=== PATIENT | male | born 1935 | race African-American/Black ===

== ENCOUNTER 2019-07-10 02:38 | Inpatient (IN) | payer MEDICARE, OTHER ==
[~2019-07-10] VITALS: Ht 188 cm; Wt 90.9 kg
[2019-07-10] MEDS ORDERED: QUET25TA34 PO (02:51)
[2019-07-10] MEDS ORDERED: CHLO25TA3 PO (02:51)
[2019-07-10] MEDS ORDERED: CLOP75TA32 PO (02:51)
[2019-07-10] MEDS ORDERED: DONE10TA43 PO (02:51)
[2019-07-10] MEDS ORDERED: TAMS-13 PO (02:51)
[2019-07-10] MEDS ORDERED: LISI-622 PO (02:51)
[2019-07-10 02:53] LABS: GLUCOSE,POINT OF CARE 123 MG/DL (70-110)
[2019-07-10 03:42] LABS: BASOPHILS % (AUTO) 0.1 % (0.0-2.0); EOSINOPHILS % (AUTO) 0 % (1.0-6.0); HEMATOCRIT 39.6 % (41-53); LYMPHOCYTES # (AUTO) 0.2 K/uL (1.0-4.8); LYMPHOCYTES % (AUTO) 1.5 % (22.0-44.0); MEAN CORPUSCULAR HEMOGLOBIN 30.1 pg (26.0-34.0); MEAN CORPUSCULAR HGB CONC 32.9 G/dL (31.0-37.0); MEAN CORPUSCULAR VOLUME 92 fL (80-100); MONOCYTES # (AUTO) 0.8 K/uL (0.1-1.0); MONOCYTES % (AUTO) 5.7 % (2.0-9.0); NEUTROPHILS # (AUTO) 13.6 K/uL (1.8-7.7); RED BLOOD CELL COUNT(AUTO) 4.32 MIL/uL (4.50-5.90)
[2019-07-10 03:51] LABS: ANION GAP 11 mmol/L (8-16); CALCIUM, TOTAL 9.7 mg/dL (8.8-10.5); CARBON DIOXIDE 26 mmol/L (22-29); CHLORIDE 101 mmol/L (98-107); GLOMERULAR FILTR. RATE CALC 37 mL/min (>60); GLUCOSE,RANDOM 118 mg/dL (70-110); POTASSIUM 4.1 mmol/L (3.5-5.1); SODIUM SERUM 138 mmol/L (136-145); UREA NITROGEN, BLOOD 34 mg/dL (7-18)
[2019-07-10 03:55] LABS: NEUTROPHILS % (AUTO) 92.7 % (40.0-70.0)
[2019-07-10 03:58] LABS: PLATELET COUNT (AUTO) 110 K/uL (150-450)
[2019-07-10 04:00] LABS: LACTIC ACID 2.5 mmol/L (0.4-2.0)
[2019-07-10 04:16] LABS: ALANINE AMINOTRANSFERASE 29 U/L (12-78); ALBUMIN 3.8 g/dL (3.4-5.0); ALKALINE PHOSPHATASE 67 U/L (46-116); ASPARTATE AMINOTRANSFERASE 29 U/L (15-37); BILIRUBIN,TOTAL 0.3 mg/dL (0.1-1.0); CREATINE KINASE, TOTAL ONLY 113 U/L (39-308); TOTAL PROTEIN, SERUM 8.1 g/dL (6.4-8.2)
[2019-07-10] MEDS ORDERED: SODIUM CHLORIDE 0.9% 1,000 ML IV ONE (05:00)
[2019-07-10] MEDS ORDERED: ONDANSETRON HCL 4 MG/2 ML VIAL IVP PRN ×2 (05:30)
[2019-07-10] MEDS ORDERED: ACETAMINOPHEN 325 MG TABLET PO PRN (05:30)
[2019-07-10] MEDS ORDERED: 0.9% SODIUM CHLORIDE 10 ML SYRINGE IVP PRN (05:30)
[2019-07-10] MEDS: CefTRIAXone 1 GM/DEXTROSE 50 ML IV SCH (06:00)
[2019-07-10] MEDS: SODIUM CHLORIDE 0.9% 1,000 ML IV SCH (06:42)
[2019-07-10 08:32] LABS: PROTHROMBIN TIME 10.1 SEC (9.4-11.6)
[2019-07-10] MEDS ORDERED: LISINOPRIL 5 MG TABLET PO SCH (09:00)
[2019-07-10] MEDS: CLOPIDOGREL BISULFATE 75 MG TABLET PO SCH (09:49)
[2019-07-10] MEDS: DOCUSATE SODIUM 100 MG CAPSULE PO SCH ×2 (09:49→21:00)
[2019-07-10] MEDS: FAMOTIDINE 10 MG/ML 2 ML VIAL IVP SCH (09:50)
[2019-07-10] MEDS: TAMSULOSIN HCL 0.4 MG CAPSULE PO SCH (09:51)
[2019-07-10 11:26] LABS: APPEARANCE,URINE CLEAR (CLEAR); BILIRUBIN,URINE NEGATIVE (NEGATIVE); GLUCOSE, URINE (UA) NEGATIVE (NEGATIVE); KETONES,URINE NEGATIVE (NEGATIVE); LEUKOCYTE ESTERASE ,URINE NEGATIVE (NEGATIVE); NITRATE,URINE NEGATIVE (NEGATIVE); OCCULT BLOOD,URINE NEGATIVE (NEGATIVE); PROTEIN,URINE NEGATIVE (NEGATIVE); UROBILINOGEN,URINE 0.2 mg/dL (<=1.0)
[2019-07-10 11:31] LABS: RBC,URINE None Seen /HPF (0-2); WBC,URINE None Seen /HPF (0-5)
[2019-07-10 11:32] LABS: BACTERIA,URINE None Seen /HPF (None Seen)
[2019-07-10 12:06] LABS: AMPHET/METH SCREEN,URINE NEGATIVE (NEGATIVE); BARBITURATE SCREEN, URINE NEGATIVE (NEGATIVE); BENZODIAZEPINES SCREEN,URINE NEGATIVE (NEGATIVE); CANNABINOID SCREEN,URINE NEGATIVE (NEGATIVE); COCAINE SCREEN,URINE NEGATIVE (NEGATIVE); METHADONE SCREEN, URINE NEGATIVE (NEGATIVE); OPIATE SCREEN,URINE NEGATIVE (NEGATIVE)
[2019-07-10 12:11] LABS: PHENCYCLIDINE SCREEN,URINE NEGATIVE (NEGATIVE)
[2019-07-10] MEDS: LORazepam 2 MG/ML VIAL IVP PRN ×2 (13:32→22:49)
[2019-07-10] MEDS: HALOPERIDOL LACTATE 5 MG/ML VIAL IM PRN ×2 (15:19→15:22)
[2019-07-11] MEDS: HALOPERIDOL LACTATE 5 MG/ML VIAL IM PRN (04:40)
[2019-07-11 05:00] VITALS: BP 149/94
[2019-07-11] MEDS: CefTRIAXone 1 GM/DEXTROSE 50 ML IV SCH (05:56)
[2019-07-11] MEDS: SODIUM CHLORIDE 0.9% 1,000 ML IV SCH ×2 (05:57→18:46)
[2019-07-11 07:34] VITALS: BP 146/88
[2019-07-11] MEDS: FAMOTIDINE 10 MG/ML 2 ML VIAL IVP SCH (08:29)
[2019-07-11] MEDS: TAMSULOSIN HCL 0.4 MG CAPSULE PO SCH (08:29)
[2019-07-11] MEDS: CLOPIDOGREL BISULFATE 75 MG TABLET PO SCH (08:31)
[2019-07-11] MEDS: DOCUSATE SODIUM 100 MG CAPSULE PO SCH ×2 (09:19→21:00)
[2019-07-11 09:26] LABS: BASOPHILS % (AUTO) 0.5 % (0.0-2.0); EOSINOPHILS % (AUTO) 1.5 % (1.0-6.0); HEMATOCRIT 36.6 % (41-53); HEMOGLOBIN 12.1 g/dL (13.5-17.5); LYMPHOCYTES # (AUTO) 0.8 K/uL (1.0-4.8); LYMPHOCYTES % (AUTO) 9.5 % (22.0-44.0); MEAN CORPUSCULAR HEMOGLOBIN 30.3 pg (26.0-34.0); MEAN CORPUSCULAR HGB CONC 33.1 G/dL (31.0-37.0); MEAN CORPUSCULAR VOLUME 92 fL (80-100); MONOCYTES # (AUTO) 1.3 K/uL (0.1-1.0); MONOCYTES % (AUTO) 15.4 % (2.0-9.0); NEUTROPHILS # (AUTO) 6.4 K/uL (1.8-7.7); NEUTROPHILS % (AUTO) 73.1 % (40.0-70.0); PLATELET COUNT (AUTO) 80 K/uL (150-450); RED CELL DISTRIBUTION WIDTH 14.1 % (11.5-14.5)
[2019-07-11 09:34] LABS: ANION GAP 10 mmol/L (8-16); CALCIUM, TOTAL 8.9 mg/dL (8.8-10.5); CARBON DIOXIDE 26 mmol/L (22-29); CHLORIDE 104 mmol/L (98-107); CREATININE 1.34 mg/dL (0.60-1.30); GLUCOSE,RANDOM 89 mg/dL (70-110); SODIUM SERUM 140 mmol/L (136-145); UREA NITROGEN, BLOOD 28 mg/dL (7-18)
[2019-07-11 09:35] LABS: GLOMERULAR FILTR. RATE CALC > 60 mL/min (>60)
[2019-07-11 11:21] VITALS: BP 152/87
[2019-07-11 15:07] VITALS: BP 148/84
[2019-07-11 19:30] VITALS: BP 141/82
[2019-07-11 23:30] VITALS: BP 146/84
[2019-07-12 04:00] VITALS: BP 140/82
[2019-07-12] MEDS: TAMSULOSIN HCL 0.4 MG CAPSULE PO SCH (07:49)
[2019-07-12] MEDS: CLOPIDOGREL BISULFATE 75 MG TABLET PO SCH (07:49)
[2019-07-12] MEDS: DOCUSATE SODIUM 100 MG CAPSULE PO SCH ×2 (07:49→23:58)
[2019-07-12] MEDS: LORazepam 2 MG/ML VIAL IVP PRN (07:49)
[2019-07-12] MEDS: SODIUM CHLORIDE 0.9% 1,000 ML IV SCH (07:50)
[2019-07-12 08:00] VITALS: BP 143/112
[2019-07-12] MEDS: FAMOTIDINE 10 MG/ML 2 ML VIAL IVP SCH (10:40)
[2019-07-12 12:05] VITALS: BP 185/79
[2019-07-12] MEDS ORDERED: CloNIDine HCL 0.1 MG TABLET PO PRN (16:00)
[2019-07-12] MEDS: AmLODIPine BESYLATE 5 MG TABLET PO SCH (16:07)
[2019-07-12 16:09] VITALS: BP 183/89
[2019-07-12 17:00] VITALS: BP 156/80
[2019-07-12 19:33] VITALS: BP 137/84
[2019-07-13 00:07] VITALS: BP 144/89
[2019-07-13] MEDS: SODIUM CHLORIDE 0.9% 1,000 ML IV SCH (01:37)
[2019-07-13 04:48] VITALS: BP 147/87
[2019-07-13] MEDS: CLOPIDOGREL BISULFATE 75 MG TABLET PO SCH (08:08)
[2019-07-13] MEDS: TAMSULOSIN HCL 0.4 MG CAPSULE PO SCH (08:08)
[2019-07-13] MEDS: AmLODIPine BESYLATE 5 MG TABLET PO SCH (08:08)
[2019-07-13] MEDS: DOCUSATE SODIUM 100 MG CAPSULE PO SCH (08:09)
[2019-07-13] MEDS: FAMOTIDINE 10 MG/ML 2 ML VIAL IVP SCH (08:09)
[2019-07-13 08:20] VITALS: BP 160/89
[2019-07-13 08:41] LABS: BASOPHILS % (AUTO) 0.3 % (0.0-2.0); EOSINOPHILS % (AUTO) 8.2 % (1.0-6.0); HEMATOCRIT 38.4 % (41-53); LYMPHOCYTES # (AUTO) 0.6 K/uL (1.0-4.8); LYMPHOCYTES % (AUTO) 14.1 % (22.0-44.0); MEAN CORPUSCULAR HEMOGLOBIN 30.5 pg (26.0-34.0); MEAN CORPUSCULAR HGB CONC 33.8 G/dL (31.0-37.0); MEAN CORPUSCULAR VOLUME 90 fL (80-100); MONOCYTES # (AUTO) 0.9 K/uL (0.1-1.0); MONOCYTES % (AUTO) 21.6 % (2.0-9.0); NEUTROPHILS # (AUTO) 2.4 K/uL (1.8-7.7); NEUTROPHILS % (AUTO) 55.8 % (40.0-70.0); PLATELET COUNT (AUTO) 83 K/uL (150-450); RED BLOOD CELL COUNT(AUTO) 4.25 MIL/uL (4.50-5.90); RED CELL DISTRIBUTION WIDTH 13.5 % (11.5-14.5)
[2019-07-13 08:54] LABS: ANION GAP 8 mmol/L (8-16); CALCIUM, TOTAL 9.3 mg/dL (8.8-10.5); CARBON DIOXIDE 28 mmol/L (22-29); CHLORIDE 103 mmol/L (98-107); CREATININE 1.27 mg/dL (0.60-1.30); GLOMERULAR FILTR. RATE CALC > 60 mL/min (>60); GLUCOSE,RANDOM 92 mg/dL (70-110); POTASSIUM 4.1 mmol/L (3.5-5.1); SODIUM SERUM 139 mmol/L (136-145); UREA NITROGEN, BLOOD 21 mg/dL (7-18)
[2019-07-13] MEDS ORDERED: AMLO10TA7 PO (08:54)
[2019-07-13] MEDS ORDERED: AmLODIPine BESYLATE 10 MG TABLET PO SCH (09:00)
[2019-07-13 12:01] VITALS: BP 141/72
== END 2019-07-13 13:30 | disposition home or self-care (01) | DRG 682 ==
LOC: EMS 02:41 → 6N 16:57
PROVIDERS: ADMIT Internal Medicine; ATTEND Internal Medicine
DX: N17.9 Acute kidney failure, unspecified (principal); G93.41 Metabolic encephalopathy; R65.11 Systemic inflammatory response syndrome (SIRS) of non-infectious origin with acute organ dysfunction; E87.2 Acidosis; C90.00 Multiple myeloma not having achieved remission; D69.6 Thrombocytopenia, unspecified; E78.00 Pure hypercholesterolemia, unspecified; F03.90 Unspecified dementia, unspecified severity, without behavioral disturbance, psychotic disturbance, mood disturbance, and anxiety; K21.9 Gastro-esophageal reflux disease without esophagitis; I10 Essential (primary) hypertension; E86.0 Dehydration; J32.9 Chronic sinusitis, unspecified; Z79.02 Long term (current) use of antithrombotics/antiplatelets; Z88.5 Allergy status to narcotic agent; Z79.899 Other long term (current) drug therapy
CPT/HCPCS: 70450; 83605; 87040; 96365; G0480; J0696; J1630; J2060; J3490; J7030

== ENCOUNTER 2020-05-04 00:18 | Emergency (ER) | payer MEDICARE, OTHER ==
[~2020-05-04] VITALS: Ht 185.4 cm; Wt 95.5 kg
[~2020-05-04 00:18] MED LIST: AMLO-258 PO; TAMS-13 PO
[2020-05-04 00:57] LABS: GLUCOSE,POINT OF CARE 105 MG/DL (70-110)
[2020-05-04 02:51] LABS: BASOPHILS % (AUTO) 0.4 % (0.0-2.0); EOSINOPHILS % (AUTO) 3.9 % (1.0-6.0); HEMATOCRIT 30.9 % (41-53); HEMOGLOBIN 10.2 g/dL (13.5-17.5); LYMPHOCYTES % (AUTO) 13.4 % (22.0-44.0); MEAN CORPUSCULAR HEMOGLOBIN 29.9 pg (26.0-34.0); MEAN CORPUSCULAR VOLUME 91 fL (80-100); MONOCYTES # (AUTO) 0.6 K/uL (0.1-1.0); MONOCYTES % (AUTO) 8.5 % (2.0-9.0); NEUTROPHILS # (AUTO) 5.3 K/uL (1.8-7.7); NEUTROPHILS % (AUTO) 73.8 % (40.0-70.0); PLATELET COUNT (AUTO) 186 K/uL (150-450); RED BLOOD CELL COUNT(AUTO) 3.41 MIL/uL (4.50-5.90); RED CELL DISTRIBUTION WIDTH 18.5 % (11.5-14.5)
[2020-05-04 02:55] LABS: ANION GAP 10 mmol/L (8-16); CALCIUM, TOTAL 9.5 mg/dL (8.8-10.5); CARBON DIOXIDE 25 mmol/L (22-29); CHLORIDE 101 mmol/L (98-107); CREATININE 1.52 mg/dL (0.60-1.30); GLOMERULAR FILTR. RATE CALC 53 mL/min (>60); GLUCOSE,RANDOM 125 mg/dL (70-110); POTASSIUM 3.7 mmol/L (3.5-5.1); SODIUM SERUM 136 mmol/L (136-145); UREA NITROGEN, BLOOD 17 mg/dL (7-18)
[2020-05-04 02:57] LABS: PROTHROMBIN TIME 10.3 SEC (9.4-11.6)
[2020-05-04 03:12] LABS: LACTIC ACID 3.1 mmol/L (0.4-2.0)
[2020-05-04 03:13] LABS: AMMONIA < 10 umol/L (11-32); TROPONIN I < 0.02 ng/mL (0.00-0.05)
[2020-05-04 03:20] LABS: ALANINE AMINOTRANSFERASE 24 U/L (12-78); ALBUMIN 3.6 g/dL (3.4-5.0); ALKALINE PHOSPHATASE 88 U/L (46-116); ASPARTATE AMINOTRANSFERASE 31 U/L (15-37); BILIRUBIN,TOTAL 0.3 mg/dL (0.1-1.0); CREATINE KINASE, TOTAL ONLY 99 U/L (39-308); TOTAL PROTEIN, SERUM 8.4 g/dL (6.4-8.2)
[2020-05-04] MEDS ORDERED: SODIUM CHLORIDE 0.9% 1,000 ML IV ONE (04:15)
[2020-05-04] MEDS ORDERED: AZITHROMYCIN 500 MG/NS 250 ML IV ONE (05:45)
[2020-05-04] MEDS ORDERED: CefTRIAXone 1 GM/DEXTROSE 50 ML IV ONE (05:45)
[2020-05-04] MEDS ORDERED: LORazepam 2 MG/ML VIAL IVP ONE (06:30)
[2020-05-04] MEDS ORDERED: DiphenhydrAMINE HCL 50 MG/ML VIAL IVP ONE (06:30)
[2020-05-04] MEDS ORDERED: ONDANSETRON HCL 4 MG/2 ML VIAL IVP PRN (07:00)
[2020-05-04] MEDS ORDERED: 0.9% SODIUM CHLORIDE 10 ML SYRINGE IVP PRN (07:00)
[2020-05-04] MEDS ORDERED: ACETAMINOPHEN 325 MG TABLET PO PRN ×2 (07:00→08:30)
[2020-05-04] MEDS ORDERED: OLAN10TA3 PO (07:43)
[2020-05-04] MEDS ORDERED: CHL25 PO (07:43)
[2020-05-04] MEDS ORDERED: QUET100T PO (07:43)
[2020-05-04] MEDS ORDERED: MAGNESIUM HYDROXIDE SUSPENSION 30 ML UDCUP PO PRN (08:30)
[2020-05-04] MEDS ORDERED: DOCUSATE SODIUM 100 MG CAPSULE PO SCH (09:00)
[2020-05-04] MEDS ORDERED: FAMOTIDINE 20 MG TABLET PO SCH (09:00)
[2020-05-04] MEDS ORDERED: ASPIRIN 81 MG CHEWABLE TABLET PO SCH (09:00)
[2020-05-04 11:12] VITALS: BP 161/90
[2020-05-04] MEDS ORDERED: HEPARIN SODIUM,PORCINE 5,000 UNITS/ML VIAL SQ SCH (16:00)
== END 2020-05-04 12:31 | disposition home or self-care (01) ==
LOC: EMS 00:18
DX: J18.9 Pneumonia, unspecified organism (principal); F03.90 Unspecified dementia, unspecified severity, without behavioral disturbance, psychotic disturbance, mood disturbance, and anxiety; R74.0 Nonspecific elevation of levels of transaminase and lactic acid dehydrogenase [LDH]; K21.9 Gastro-esophageal reflux disease without esophagitis; E78.00 Pure hypercholesterolemia, unspecified; I10 Essential (primary) hypertension; Z20.828 Contact with and (suspected) exposure to other viral communicable diseases; Z88.0 Allergy status to penicillin
CPT/HCPCS: 36415; 70450; 71045; 80053; 82140; 82550; 82962; 83605; 84484; 85025; 85610; 85730; 87040; 87426; 93005; 96361; 96365; 96366; 96375; 99285; J0456; J0696; J1200; J2060; U0003